=== PATIENT | female | born 1965 | race Caucasian/White ===

== ENCOUNTER 2025-05-08 07:53 | Emergency (ER) | payer MEDICAID ==
[~2025-05-08] VITALS: Ht 165.1 cm; Wt 102.5 kg
--- NOTE | 2025-05-08 10:07 | RADIOLOGY REPORT ---
EXAM: DI FOREARM,INCL.ONE JOINT HISTORY: fall concern for fracture COMPARISON: None TECHNIQUE: AP and lateral views of the right forearm were performed. FINDINGS/IMPRESSION: No acute fracture of the right radius or ulna.
--- NOTE | 2025-05-08 10:08 | RADIOLOGY REPORT ---
EXAM: DI SHOULDER, COMPLETE (MIN 2 VWS) HISTORY: fall concern for fracture COMPARISON: None TECHNIQUE: 2 views of the right shoulder were performed. FINDINGS: No acute fracture or dislocation are identified about the right shoulder. There is acromioclavicular hypertrophy without significant loss of subacromial space. IMPRESSION: 1. No acute fracture of the right shoulder. 2. Acromioclavicular hypertrophy.
--- NOTE | 2025-05-08 10:08 | RADIOLOGY REPORT ---
CLINICAL INDICATION: fall concern for fracture TECHNIQUE: AP and lateral views of the right humerus were performed. DI HUMERUS (2VWS) COMPARISON: None FINDINGS/IMPRESSION: 1. No acute fracture of the right humerus. 2. Acromioclavicular hypertrophy without loss of subacromial space.
--- NOTE | 2025-05-08 10:12 | RADIOLOGY REPORT ---
EXAM: DI HAND, COMPLETE (3VW MIN) CLINICAL INDICATION: fall concern for fracture TECHNIQUE: DI HAND, COMPLETE (3VW MIN) COMPARISON: None FINDINGS/IMPRESSION: There is no evidence of acute fracture or dislocation. The visualized joint space is well maintained. The alignment is anatomical. There is no radiopaque foreign body.
--- NOTE | 2025-05-08 10:12 | Physician Documentation ---
History of Present Illness ~ Chief Complaint: Foot pain Stated Complaint: RIGHT SIDE PAIN Time Seen by MD: 09:12 Primary Medical Doctor: NONE HPI 59-year-old female with no significant past medical history presents to the ED with complaints of right foot, right upper extremity and right side of the neck pain for the past two weeks. She has been having the pain since Halloween, pain initially started in the right foot after she had a fall. She fell down stairs (around seven), she missed the last step and tripped and fell to the floor. She had not hit her head or lose consciousness. She is unable to walk or bear weight on the right foot. Denies significant chest pains, diaphoresis, fevers/chills, nasal congestion, expectoration, palpitations, or weight loss/weight gain. Drinks around 12 pack beers a day and smokes cigar one a day. Daughter present at bedside. Occurred: other (Two weeks) Injury/Pain Location: neck, hand, foot Context: tripped Loss Of Consciousness: no loss of consciousness Associated Symptoms: denies symptoms Pain Severity: moderate Modifying Factors: improves with: pain medication, rest Tetanus within 5 Years?: No Prehospital Care: none Medication Reconciliation Allergies: Coded Allergies: No Known Allergies (Unverified , 05/08/25) Review of Systems ROS Reviewed in full. All negative except for pertinent positive HPI. Physical Exam Vital Signs: Temperature: 97.1, Source: Temporal, Heart Rate: 82, Respiratory Rate: 16, BP: 159/103, Pulse Oximetry: 98, Weight: 102.500 Oxygen Flow Rate: 0 Physical Exam General: Awake and Alert, mild acute distress. HEENT: Conjunctiva pink, Sclera clear, Mucus Membranes moist. Neck: Supple without masses and tenderness. Resp: Unlabored. Equal breath sounds bilaterally. Heart: Regular rhythm, normal S1 and S2, no rub, murmur or gallop. Abdomen: Soft and non tender no organomegaly. Normal bowel sounds x4 quadrant normoactive. No guarding or rigidity. Extremities: Right foot swollen and tender, severe restriction of motion. Restricted motion also noticed in the upper extremity. [employer]OR: No gross motor or sensory abnormalities. Skin: Warm and Dry. Progress Results/Orders Results/Orders Medications Received in ER Medications (Trade) Dose Ordered Sig/Pantera Route PRN Reason Start Time Stop Time Status Last Admin Dose Admin ([place] 10/325mg tab) 1 tab ONCE ONCE PO 05/08/25 10:30 05/08/25 10:34 DC 05/08/25 10:44 1 TAB Vital Signs 05/08/25 05/08/25 05/08/25 05/08/25 08:12 10:12 10:44 11:17 Temp 97.1 97.1 97.1 Pulse 82 74 68 Resp 16 18 18 18 B/P (MAP) 159/103 136/89 (105) 146/87 Pulse Ox 98 100 99 O2 Flow Rate 0 0 Medical Decision Making Additional information obtaine: other Findings Yearly restricted motion of the right foot, and right upper extremity after a mechanical fall Differential Dx:Considerations: Include: Fracture(s), Vascular injury, Abrasion(s), Hematoma(s), Laceration(s), Other Departure Disposition: 01 HOME / SELF CARE / HOMELESS Impression: Primary Impression: Fracture of foot Additional Impressions: Foot pain Metatarsal bone fracture Condition: Stable Discharge Instructions: Metatarsal Fracture, Metatarsal Fracture Rehab Additional Instructions: Your X Ray of the foot shows fracture in the right 5 th metatarsal bone, recommended to use the splint and crutches for atleast 4 weeks and then get another x ray done then to evaluate for healing. Get a referral to see ortho from your pcp. For pain can use tylenol or ibuprofen prn. RICE Treatment : Rest, Ice, Compression and Elevation is recommended. If condition worsens call 911 or go to the nearest er immediately. Non weight bearing for atleast 4 weeks and then as tolerated based on the fusion and healing. If condition worsens call 911 or go to the nearest ER immedidately Referrals: NO PRIMARY CARE PROVIDER (PCP) Education Educated: Patient Educated regarding: diagnosis, treatment, prognosis, need for follow up ACF Form Admit Criteria Met or Not Met: NO Signature Scribe Signature: NA Attestation: Adele Montenegro MD. I have reviewed this case [id number] with the resident, including physical examination, laboratory and imaging results as appropriate. The patient was evaluated [id number] and I agree with the resident's notes. I agree with the findings, evaluation and disposition. ADELE MONTENEGRO, RES May 08, 2025 10:12 GORDON PENG MD May 08, 2025 17:22
--- NOTE | 2025-05-08 10:14 | RADIOLOGY REPORT ---
EXAM: DI FOOT, COMPLETE (3VW MIN), DI TIB/FIB 2 VWS CLINICAL INDICATION: fall concern for fracture TECHNIQUE: DI FOOT, COMPLETE (3VW MIN), DI TIB/FIB 2 VWS COMPARISON: DI HAND, COMPLETE (3VW MIN) on DOS: 05/08/25 FINDINGS/IMPRESSION: No fracture involving the tibia or fibula. There is a comminuted fracture of the base of the 5th metatarsal. Correlate with point tenderness.
[2025-05-08] MEDS: HYDROcodone/acetaminophen 10/325mg tab PO ONE (10:44)
[2025-05-08 11:17] VITALS: BP 146/87; PULSE 68; RESP 18; TEMP 97.1; O2SAT 99
== END 2025-05-08 11:45 | disposition home or self-care (01) ==
LOC: ER 07:55
DX: S92.351A Displaced fracture of fifth metatarsal bone, right foot, initial encounter for closed fracture (principal); S19.9XXA Unspecified injury of neck, initial encounter; M79.671 Pain in right foot; F17.290 Nicotine dependence, other tobacco product, uncomplicated; W10.9XXA Fall (on) (from) unspecified stairs and steps, initial encounter; Y93.89 Activity, other specified; Y92.89 Other specified places as the place of occurrence of the external cause; Y99.8 Other external cause status
CPT/HCPCS: 73030; 73060; 73090; 73130; 73590; 73630; 99284; L4360